=== PATIENT | male | born 1955 | race Two or more races ===

== ENCOUNTER → 2016-06-27 | Outpatient (CLI) | payer OTHER ==
[~2016-06-27] MED LIST: FAMOTIDINE PO; ZYRTEC PO
--- NOTE | ~2016-06-27 | CR181 ---
[facility] A Service of [facility] & [facility] RADIOLOGY TEXT RESULTS PATIENT: GARETH ADAMS LOCATION: [facility] : 55 UNIT #: [id number] AGE: [address]: Jack Tolbert MD SEX: M ORDER DR: [id number] [facility] [address]. [place], [place] [address] [id number] O MR#: [id number] Acc #: [id number] NAME: GARETH ADAMS : 1955 SEX: M STUDY DATE/TIME: 06/27/2016 12:13 UNIT: [facility] ROOM: STUDY DESCRIPTION: CR Lumbar Spine 2 or 3 Views Attending Physician: Jack Tolbert M.D. Referring Physician: Jack Tolbert M.D. Ordering Physician: Jack Tolbert M.D. Primary Care Physician: Saran Barajas M.D. MEDICAL IMAGING REPORT This report is preliminary unless electronic signature is present EXAM Lumbar spine 3 views INDICATIONS Low back pain for 3 months. COMPARISON STUDIES No comparisons. FINDINGS Minimal leftward curve may be positional. No significant disc space narrowing. Vertebral body heights are maintained. There is straightening of the lumbar lordosis. IMPRESSION Straightening of the lumbar lordosis with minimal leftward curve. Otherwise, unremarkable. Dictated by... Zac Rangel M.D. THIS IS AN ELECTRONICALLY VERIFIED REPORT Zac Rangel M.D. at 06/29/2016 7:23 AM ARS/pcl TD: 06/27/2016 17:54 JOB #: [id number] MEDICAL IMAGING REPORT Page 1 of 1 COPY
--- NOTE | ~2016-06-27 | CR150 ---
[facility] A Service of [facility] & [facility] RADIOLOGY TEXT RESULTS PATIENT: GARETH ADAMS LOCATION: [facility] : 55 UNIT #: [id number] AGE: [address]: Jack Tolbert MD SEX: M ORDER DR: [id number] [facility] [address]. [place], [place] [address] [id number] O MR#: [id number] Acc #: [id number] NAME: GARETH ADAMS : 1955 SEX: M STUDY DATE/TIME: 06/27/2016 12:13 UNIT: [facility] ROOM: STUDY DESCRIPTION: CR Hip Min 2 Views Lt Attending Physician: Jack Tolbert M.D. Referring Physician: Jack Tolbert M.D. Ordering Physician: Jack Tolbert M.D. Primary Care Physician: Saran Barajas M.D. MEDICAL IMAGING REPORT This report is preliminary unless electronic signature is present EXAM Left hip 2 views 06/27/2016 INDICATIONS Left hip pain for 3 months. COMPARISON STUDIES No comparisons. FINDINGS There is postoperative change of the left hip. Mild hip joint space narrowing. No fracture or dislocation. IMPRESSION Postop changes of the left hip. Dictated by... Zac Rangel M.D. THIS IS AN ELECTRONICALLY VERIFIED REPORT Zac Rangel M.D. at 06/29/2016 7:23 AM Nicolas TD: 06/27/2016 17:58 JOB #: [id number] MEDICAL IMAGING REPORT Page 1 of 1 COPY
--- NOTE | ~2016-06-27 | CR20 ---
[facility] A Service of [facility] & [facility] RADIOLOGY TEXT RESULTS PATIENT: GARETH ADAMS LOCATION: [facility] : 55 UNIT #: [id number] AGE: [address]: Jack Tolbert MD SEX: M ORDER DR: [id number] [facility] [address]. [place], [place] [address] [id number] O MR#: [id number] Acc #: [id number] NAME: GARETH ADAMS : 1955 SEX: M STUDY DATE/TIME: 06/27/2016 12:14 UNIT: [facility] ROOM: STUDY DESCRIPTION: CR Ankle Min 3 Views Lt Attending Physician: Jack Tolbert M.D. Referring Physician: Jack Tolbert M.D. Ordering Physician: Jack Tolbert M.D. Primary Care Physician: Saran Barajas M.D. MEDICAL IMAGING REPORT This report is preliminary unless electronic signature is present EXAM Left ankle 3 views 06/27/2016 INDICATIONS Left ankle pain for 3 months. COMPARISON STUDIES No comparisons are available. FINDINGS Postop changes of the medial malleolus. No fracture, dislocation or soft tissue swelling. IMPRESSION Postop changes of the medial malleolus. Otherwise unremarkable. Dictated by... Zac Rangel M.D. THIS IS AN ELECTRONICALLY VERIFIED REPORT Zac Rangel M.D. at 06/29/2016 7:23 AM Nicolas TD: 06/27/2016 17:59 JOB #: [id number] MEDICAL IMAGING REPORT Page 1 of 1 COPY
== END | disposition home or self-care (01) ==
LOC: CRAD 11:58
DX: M54.5 Low back pain (principal); M16.12 Unilateral primary osteoarthritis, left hip; G89.29 Other chronic pain; M40.56 Lordosis, unspecified, lumbar region; M25.572 Pain in left ankle and joints of left foot; Z98.890 Other specified postprocedural states
CPT/HCPCS: 72100; 73502; 73610

== ENCOUNTER 2016-08-25 13:44 | Emergency (ER) | payer OTHER ==
[2016-08-25 14:51] LABS: URINE SOURCE CLEAN CATCH
[2016-08-25 15:08] LABS: URINE APPEARANCE CLEAR; URINE BILIRUBIN NEG (NEG); URINE BLOOD NEG (NEG); URINE COLOR YELLOW; URINE GLUCOSE NEG (NEG); URINE KETONE NEG (NEG); URINE LEUKOCYTE ESTERASE NEG (NEG); URINE NITRATE NEG (NEG); URINE PROTEIN NEG (NEG); URINE SPECIFIC GRAVITY 1.004 (1.003-1.035); URINE UROBILINOGEN 0.2 MG/DL (NEG)
[2016-08-25 15:17] LABS: CULTURE INDICATED? NO
[2016-08-25 15:46] LABS: BASOPHIL% 1.1 % (0-2.5); EOSINOPHIL# 0.1 X10e3 (0-0.7); EOSINOPHIL% 3.8 % (0.0-7.0); HEMATOCRIT 41.7 % (38.0-50.0); LYMPHOCYTE# 1.9 X10e3 (1.0-3.5); LYMPHOCYTE% 55.4 % (17.0-45.0); MEAN CELL VOLUME 86.6 FL (83-96); MEAN CORPUSCULAR HGB CONC 33.4 g/dL (30-36); MEAN PLATELET VOLUME 7.8 FL (6.5-11.5); MONOCYTE# 0.4 X10e3 (0-1.0); MONOCYTE% 11.2 % (3.0-12.0); NEUTROPHIL% 28.5 % (40-75); PLATELET COUNT 211 X10e3 (140-420); RED BLOOD COUNT 4.82 X10e (3.90-5.60); RED CELL DISTRIBUTION WIDTH 13.5 % (11.0-15.5); WHITE BLOOD COUNT 3.5 X10e3 (4.0-10.5)
[2016-08-25 15:58] LABS: DIFF IND YES
[2016-08-25 16:00] LABS: BUN/CREATININE RATIO 8.75; CALCIUM SERUM 8.7 mg/dL (8.4-10.2); CREATININE SERUM 0.8 mg/dL (0.6-1.4); GLOM FILT RATE Estimated 96.5 mL/min (>60); POTASSIUM 3.2 mmol/L (3.5-5.1)
[2016-08-25 16:29] LABS: ANISOCYTOSIS SL; PLATELET ESTIMATE NORMAL (NORMAL)
== END 2016-08-25 16:52 | disposition home or self-care (01) ==
LOC: CED 13:44
PROVIDERS: Emergency Medicine
DX: N40.1 Benign prostatic hyperplasia with lower urinary tract symptoms (principal); R33.8 Other retention of urine
CPT/HCPCS: 36415; 51702; 80048; 81003; 85025; 99283